=== PATIENT | female | born 1985 | race African-American/Black ===

== ENCOUNTER 2019-01-21 20:35 | Emergency (ER) | payer OTHER ==
[2019-01-21 20:46] VITALS: BP 149/117; PULSE 87; TEMP 98.4; BMI 46.5
--- NOTE | 2019-01-21 20:58 | PDOC ---
History of Present Illness - General Chief Complaint: Pain, Acute Stated Complaint: LEFT SIDE PAIN Time Seen by Provider: 01/21/19 20:58 History Source: Patient Exam Limitations: No Limitations - History of Present Illness Initial Comments: Pt is a 33 yo F, with PMH of myasthenia gravis, who is presenting with complaints of L-sided abdominal pain, L flank pain, and 1 episode of NBNB vomiting since this afternoon around 4 pm. Pt states the pain is intermittent, lasts for about 30 minutes and then slowly subsides on its own. There are no exacerbating nor alleviating factors. Pt took 500 mg PO tylenol at 5 pm with minimal relief. Pt was tolerating PO food and fluid intake without difficulty before the pain started. Pt is currently in [place] visiting on a vacation from [place]. Pt denies any fevers/chills, headache, vision changes, syncope, chest pain, palpitations, SOB, urinary symptoms, diarrhea/constipation, or leg swelling. Social: Pt denies any cigarette, alcohol, or drug use. Pt denies any recent travel or sick contacts. Surgical: , no other abdominal surgeries. Family: no relevant history. No FH of stones. 01/21/19 23:51 Past History - Travel Traveled outside of the country in the last 30 days: No Close contact w/someone who was outside of country & ill: No - Past Medical History Allergies/Adverse Reactions: Allergies Allergy/AdvReac Type Severity Reaction Status Date / Time No Known Allergies Allergy Verified 01/21/19 20:45 COPD: No - Suicide/Smoking/Psychosocial Hx Smoking History: Never smoked Review of Systems - Review of Systems Able to Perform ROS?: Yes Is the patient limited Yemeni proficient: No Constitutional: Yes: Weight Stable. No: Chills, Diaphoresis, Fever, Loss of Appetite, Malaise, Weakness HEENTM: No: Blurred Vision, Double Vision, Nose Pain, Nose Congestion, Throat Pain, Difficulty Swallowing Respiratory: No: Cough, Orthopnea, Shortness of Breath Cardiac (ROS): No: Chest Pain, Edema, Irregular Heart Rate, Lightheadedness, Palpitations, Syncope, Chest Tightness ABD/GI: Yes: Nausea, Vomiting, Abdominal cramping. No: Abdominal Distended, Abd. Pain w/ defecation, Blood Streaked Bowels, Constipated, Diarrhea, Poor Appetite, Poor Fluid Intake, Rectal Bleeding, Indigestion, Tarry Stools : Yes: Flank Pain. No: Burning, Dysuria, Discharge, Frequency, Hematuria, Incontinence, Pain, Urgency Musculoskeletal: No: Back Pain, Joint Pain, Muscle Pain, Muscle Weakness Integumentary: No: Rash Neurological: No: Headache, Numbness, Weakness, Unsteady Gait, Dizziness Psychiatric: No: Sleep Pattern Change, Change in Appetite Endocrine: No: Increased Urine, Change in Weight Hematologic/Lymphatic: No: Anemia, Blood Clots, Easy Bleeding, Easy Bruising All Other Systems: Reviewed and Negative *Physical Exam - Vital Signs Last Vital Signs Temp Pulse Resp BP Pulse Ox 98.4 F 87 20 149/117 H 100 01/21/19 20:45 01/21/19 20:45 01/21/19 20:45 01/21/19 20:45 01/21/19 20:45 - Physical Exam Comments: HTN 149/117, HR 87, pt afebrile. Pt appears uncomfortable, rolling on bed. Morbidly obese body habitus. Pt alert and oriented x3. 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 No midline spinal tenderness, step-offs, or crepitus. Head normocephalic, atraumatic. Eyes PERRLA, EOMI. Oropharynx without erythema or exudates, no LAD b/l. No nasal congestion, hearing intact. Clear heart sounds, S1/S2, no JVD, b/l pedal edema, or heart murmur. Clear lung sounds, no respiratory distress, wheezes, crackles, or accessory muscle use. No reproducible abdominal or CVA tenderness to palpation, no rebound, no guarding. Abdomen soft, protuberant, and with hyperactive bowel sounds. Skin without jaundice or rash. 01/21/19 23:34 ED Treatment Course - LABORATORY CBC & Chemistry Diagram: 01/21/19 21:27 01/21/19 21:17 Medical Decision Making - Medical Decision Making Pt was seen at bedside, also will be seen by attending Dr. Hollins. Pt presenting with complaints of L-sided abdominal pain, L flank pain, and 1 episode of NBNB vomiting since this afternoon around 4 pm. Pt states the pain is intermittent, lasts for about 30 minutes and then slowly subsides on its own. There are no exacerbating nor alleviating factors. Pt took 500 mg PO tylenol at 5 pm with minimal relief. Pt was tolerating PO food and fluid intake without difficulty before the pain started. Pt is currently in [place] visiting on a vacation from [place]. Pt denies any fevers/chills, headache, vision changes, syncope, chest pain, palpitations, SOB, urinary symptoms, diarrhea/constipation, or leg swelling. Considering nephrolithiasis vs diverticulitis/colitis vs UTI vs / ectopic vs ovarian cyst Ordered work-up including CBC, CMP, coags, serum test, . Provided 1 L IV NS, 4 mg IV zofran, 2 mg IV morphine, and 30 mg IV toradol for improvement of discomfort and nausea. Will continue to reassess pt and monitor for symptomatic improvement. 01/21/19 21:49 Pt continuing to have pain, providing 1 g IV ofirmev. Will obtain spiral CT scan to eval for stones. 01/21/19 22:19 CBC, CMP, and coags WNL Lactic 1.4 UA: trace ketones, 3+ blood, negative LE. Otherwise appears contaminated. Urine culture sent. Providing additional 2 mg IV morphine (4 mg total), and 0.4 mg tamsulosin. Called radiology to have CT scan sent again to imaging rehabilitation engineer, as it has not been sent nor read. 01/21/19 23:42 No nephrolithiasis, ureterolithiasis or obstructive uropathy. No bladder calculi. Unremarkable pancreas and gallbladder. Hepatomegaly. No bowel obstruction, colitis, free fluid or free air. Normal appendix. Diverticulosis colon without acute diverticulitis. Tiny umbilical hernia containing fat. 01/21/19 23:56 Pt being admitted to hospitalist team for intractable abdominal pain. Pt signed out to Dr. Hollins (night team). BP improved 123/90. 01/22/19 00:17 *DC/Admit/Observation/Transfer Diagnosis at time of Disposition: Intractable abdominal pain - Discharge Dispostion Condition at time of disposition: Stable Decision to Admit order: Yes - Referrals - Patient Instructions - Post Discharge Activity
[2019-01-21] MEDS ORDERED: morphine CARPU-JECT 4 MG/1 ML DISP.SYRIN IVPUSH ONE ×2 (21:18→23:23)
[2019-01-21] MEDS ORDERED: ONDANSETRON 4 MG/2 ML VIAL IVPUSH ONE (21:19)
[2019-01-21] MEDS ORDERED: ONDANSETRON 4 MG/2 ML VIAL ONE (21:21)
[2019-01-21] MEDS ORDERED: SODIUM CHLORIDE 1,000 ML IV STA (21:26)
[2019-01-21] MEDS ORDERED: KETOROLAC TROMETHAMINE 30 MG/1 ML VIAL IVPUSH ONE (21:30)
[2019-01-21 21:37] LABS: BASO % 0.7 % (0-2.0); EOS % 0.1 % (0-4.5); HEMATOCRIT 34.3 % (32.4-45.2); HEMOGLOBIN 11.2 GM/dL (10.7-15.3); LYMPH % 25.3 % (8-40); MCH 29.6 pg (25.7-33.7); MCHC 32.7 g/dl (32.0-36.0); MEAN CELL VOLUME 90.3 fl (80-96); MEAN PLT VOLUME 6.7 fl (7.5-11.1); MONO % 8.3 % (3.8-10.2); NEUT % 65.6 % (42.8-82.8); PLATELET COUNT 357 K/MM3 (134-434); RDW 14.7 % (11.6-15.6); WHITE BLOOD COUNT 6.8 K/mm3 (4.0-10.0)
[2019-01-21 21:41] LABS: URINE APPEARANCE CLOUDY; URINE BACTERIA 422.1 /hpf (NEGATIVE); URINE BILIRUBIN NEGATIVE (NEGATIVE); URINE CASTS 13 /lpf (0-8); URINE COLOR YELLOW; URINE GLUCOSE (UA) NEGATIVE (NEGATIVE); URINE KETONE TRACE (NEGATIVE); URINE LEUK ESTERASE NEGATIVE (NEGATIVE); URINE NITRITE NEGATIVE (NEGATIVE); URINE PROTEIN NEGATIVE (NEGATIVE); URINE RBC 2 /hpf (0-4); URINE UROBILINOGEN 0.2 mg/dL (0.2-1.0); URINE WBC 8 /hpf (0-5)
[2019-01-21] MEDS ORDERED: KETOROLAC TROMETHAMINE 30 MG/1 ML VIAL ONE (21:47)
[2019-01-21 22:09] LABS: INR 1.02 (0.83-1.09)
[2019-01-21 22:11] LABS: ALBUMIN 3.5 g/dl (3.4-5.0); ALK PHOS 66 U/L (45-117); ANION GAP 8 MMOL/L (8-16); BILIRUBIN,TOTAL 0.2 mg/dL (0.2-1); BLOOD UREA NITROGEN 5 mg/dL (7-18); CALCIUM 8.6 mg/dL (8.5-10.1); CHLORIDE 109 mmol/L (98-107); CO2 23 mmol/L (21-32); CREATININE 0.6 mg/dL (0.55-1.3); GLUCOSE,RANDOM 91 mg/dL (74-106); LIPASE 79 U/L (73-393); POTASSIUM 3.6 mmol/L (3.5-5.1); SGOT/AST 15 U/L (15-37); SGPT/ALT 15 U/L (13-61); SODIUM 140 mmol/L (136-145); TOT PROT 7.3 g/dl (6.4-8.2)
[2019-01-21] MEDS ORDERED: ACETAMINOPHEN 1000 MG/100 ML VIAL (NON FORMULARY) IVPB ONE (22:19)
[2019-01-21] MEDS ORDERED: TAMSULOSIN HCL 0.4 MG CAP PO ONE (22:24)
[2019-01-21] MEDS ORDERED: morphine SULFATE 4 MG/ML VIAL ONE (23:40)
[2019-01-21] MEDS ORDERED: TAMSULOSIN HCL 0.4 MG CAP ONE (23:40)
[2019-01-21] MEDS ORDERED: ACETAMINOPHEN INJECTION 100 ML IVPB ONE (23:41)
--- NOTE | 2019-01-22 00:05 | PDOC ---
Documentation entered by Falguni Hanson SCRIBE, acting as scribe for Lary Hollins MD. Lary Hollins MD: This documentation has been prepared by the Valentin qiu Daisy, SCRIBE, under my direction and personally reviewed by me in its entirety. I confirm that the documentation accurately reflects all work, treatment, procedures, and medical decision making performed by me. Attending Attestation - Resident Resident Name: Teresita Mclaughlin - ED Attending Attestation I have performed the following: I have examined & evaluated the patient, The case was reviewed & discussed with the resident, I agree w/resident's findings & plan - HPI HPI: 01/21/19 21:20 The patient is a 33 YOF with a PMH of myasthenia gravis who presents to the ER with left sided abdominal pain since 5PM today. Patient reports the abdominal pain began gradually, but has become more constant. She also endorses having 2 episodes of NB, NB vomit. She reports eating eggs this morning and snacking throughout the day. She reports having approximately 5 bowel movements per day, but had 2 BMs today, both of which were normal. Does admit to minimal straining today while having a bowel movement. Denies any heavy lifting. Denies any history of kidney stones. The patient denies chest pain, shortness of breath, headache and dizziness. Denies fever, chills, diarrhea or blood in the stool. Denies dysuria, frequency, urgency and hematuria. Allergies: NKA Past surgical history: Social history: No reported alcohol, drug or cigarette use. - Physicial Exam PE: 01/21/19 21:19 ADULT PHYSICAL EXAM Constitutional: Awake, alert, oriented. No acute distress. Head: Normocephalic. Atraumatic Eyes: PERRL. EOMI. Conjunctivae are not pale. ENT: Mucous membranes are moist and intact. Posterior pharynx without exudates or erythema. Uvula midline. Cardiovascular: Regular rate. Regular rhythm. S1, S2 regular. Distal pulses are 2+ and symmetric. Pulmonary/Chest: No evidence of respiratory distress. Clear to auscultation bilaterally No wheezing, rales or rhonchi. Abdominal: Soft and non-distended. (+) Minimal left sided tenderness. No rebound, guarding or rigidity. No organomegaly. No palpable masses. Good bowel sounds. Musculoskeletal: No edema. No cyanosis. No clubbing. Full range of motion in all extremities. Nocalf tenderness. Radial/pedal pulses are intact and 2+ bilaterally Skin: Skin is warm and dry. Neurological: Alert and oriented to person, place, and time. Cranial nerves II -XII are grossly intact. Psychiatric: Good eye contact. Normal interaction, affect and behavior. - Medical Decision Making 01/21/19 22:23 Pt has blood in her urine, but no nitrites and no leukocytes. She has left flank pain. SHe has normal chem and normal CBC. SHe is not and she will be sent for a CT scan to r/o kidney stones. 01/22/19 00:50 Pt wants to go home, but she still has intracrable pain. Pt wants to AMA.
--- NOTE | 2019-01-22 00:40 | HP ---
CHIEF COMPLAINT: PCP: HISTORY OF PRESENT ILLNESS: ER course was notable for: (1) (2) (3) Recent Travel: PAST MEDICAL HISTORY: PAST SURGICAL HISTORY: Social History: Smoking: Alcohol: Drugs: Family History: Allergies No Known Allergies Allergy (Verified 01/21/19 20:45) HOME MEDICATIONS: REVIEW OF SYSTEMS CONSTITUTIONAL: Absent: fever, chills, diaphoresis, generalized weakness, malaise, loss of appetite, weight change HEENT: Absent: rhinorrhea, nasal congestion, throat pain, throat swelling, difficulty swallowing, mouth swelling, ear pain, eye pain, visual changes CARDIOVASCULAR: Absent: chest pain, syncope, palpitations, irregular heart rate, lightheadedness , peripheral edema RESPIRATORY: Absent: cough, shortness of breath, dyspnea with exertion, orthopnea, wheezing, stridor, hemoptysis GASTROINTESTINAL: Absent: abdominal pain, abdominal distension, nausea, vomiting, diarrhea, constipation, melena, hematochezia GENITOURINARY: Absent: dysuria, frequency, urgency, hesitancy, hematuria, flank pain, genital pain MUSCULOSKELETAL: Absent: myalgia, arthralgia, joint swelling, back pain, neck pain SKIN: Absent: rash, itching, pallor HEMATOLOGIC/IMMUNOLOGIC: Absent: easy bleeding, easy bruising, lymphadenopathy, frequent infections ENDOCRINE: Absent: unexplained weight gain, unexplained weight loss, heat intolerance, cold intolerance NEUROLOGIC: Absent: headache, focal weakness or paresthesias, dizziness, unsteady gait, seizure, mental status changes, bladder or bowel incontinence PSYCHIATRIC: Absent: anxiety, depression, suicidal or homicidal ideation, hallucinations. PHYSICAL EXAMINATION Vital Signs - 24 hr 01/21/19 20:45 Temperature 98.4 F Pulse Rate 87 Respiratory 20 Rate Blood Pressure 149/117 H O2 Sat by Pulse 100 Oximetry (%) GENERAL: Awake, alert, and fully oriented, in no acute distress. HEAD: Normal with no signs of trauma. EYES: Pupils equal, round and reactive to light, extraocular movements intact, sclera anicteric, conjunctiva clear. No lid lag. EARS, NOSE, THROAT: Ears normal, nares patent, oropharynx clear without exudates. Moist mucous membranes. NECK: Normal range of motion, supple without lymphadenopathy, JVD, or masses. LUNGS: Breath sounds equal, clear to auscultation bilaterally. No wheezes, and no crackles. No accessory muscle use. HEART: Regular rate and rhythm, normal S1 and S2 without murmur, rub or gallop. ABDOMEN: Soft, nontender, not distended, normoactive bowel sounds, no guarding, no rebound, no masses. No hepatomegaly or splenomegaly. MUSCULOSKELETAL: Normal range of motion at all joints. No bony deformities or tenderness. No CVA tenderness. UPPER EXTREMITIES: 2+ pulses, warm, well-perfused. No cyanosis. No clubbing. No peripheral edema. LOWER EXTREMITIES: 2+ pulses, warm, well-perfused. No calf tenderness. No peripheral edema. NEUROLOGICAL: Cranial nerves II-XII intact. Normal speech. Normal gait. PSYCHIATRIC: Cooperative. Good eye contact. Appropriate mood and affect. SKIN: Warm, dry, normal turgor, no rashes or lesions noted, normal capillary refill. Laboratory Results - last 24 hr 01/21/19 01/21/19 01/21/19 21:17 21:24 21:27 WBC 6.8 RBC 3.80 Hgb 11.2 Hct 34.3 MCV 90.3 MCH 29.6 MCHC 32.7 RDW 14.7 Plt Count 357 MPV 6.7 L Absolute Neuts (auto) 4.5 Neutrophils % 65.6 Lymphocytes % 25.3 Monocytes % 8.3 Eosinophils % 0.1 Basophils % 0.7 Nucleated RBC % 0 PT with INR INR Sodium 140 Potassium 3.6 Chloride 109 H Carbon Dioxide 23 Anion Gap 8 BUN 5 L Creatinine 0.6 Creat Clearance w eGFR 116.60 Random Glucose 91 Lactic Acid Calcium 8.6 Total Bilirubin 0.2 AST 15 ALT 15 Alkaline Phosphatase 66 Total Protein 7.3 Albumin 3.5 Lipase 79 Serum , Qual Negative Urine Color Urine Appearance Urine pH Ur Specific [place] Urine Protein Urine Glucose (UA) Urine Ketones Urine Blood Urine Nitrite Urine Bilirubin Urine Urobilinogen Ur Leukocyte Esterase Urine WBC (Auto) Urine RBC (Auto) Urine Casts (Auto) U Epithel Cells (Auto) Urine Bacteria (Auto) 01/21/19 01/21/19 01/21/19 21:27 21:27 21:30 WBC RBC Hgb Hct MCV MCH MCHC RDW Plt Count MPV Absolute Neuts (auto) Neutrophils % Lymphocytes % Monocytes % Eosinophils % Basophils % Nucleated RBC % PT with INR 12.00 INR 1.02 Sodium Potassium Chloride Carbon Dioxide Anion Gap BUN Creatinine Creat Clearance w eGFR Random Glucose Lactic Acid 1.4 Calcium Total Bilirubin AST ALT Alkaline Phosphatase Total Protein Albumin Lipase Serum , Qual Urine Color Yellow Urine Appearance Cloudy Urine pH 5.0 Ur Specific [place] 1.031 Urine Protein Negative Urine Glucose (UA) Negative Urine Ketones Trace H Urine Blood 3+ H Urine Nitrite Negative Urine Bilirubin Negative Urine Urobilinogen 0.2 Ur Leukocyte Esterase Negative Urine WBC (Auto) 8 Urine RBC (Auto) 2 Urine Casts (Auto) 13 U Epithel Cells (Auto) 12.0 Urine Bacteria (Auto) 422.1 ASSESSMENT/PLAN:
--- NOTE | 2019-01-22 00:47 | PN ---
Teaching Attending Note Name of Resident: Black Rob Patient was to be admitted to medicine; Patient presents with intractable abdominal pain and eloped before we could finish our assessment. For Intractable abdominal pain Was planning on checking A1c, esr, crp, acute hepatitis panel, urine spot PBG, repeating UA as +blood with bacteria and negative LE/nitrite Should she return to the hosptial [facility] would be happy to admit her and monitor her on the hospitalist service.
[2019-01-22] MEDS ORDERED: KETOROLAC TROMETHAMINE 30 MG/1 ML VIAL IVPUSH ONE (00:52)
[2019-01-22] MEDS ORDERED: KETOROLAC TROMETHAMINE 30 MG/1 ML VIAL ONE (00:56)
== END 2019-01-22 01:05 | disposition left against medical advice (07) ==
LOC: JER 20:35
PROC: 3E0337Z Introduction of Electrolytic and Water Balance Substance into Peripheral Vein, Percutaneous Approach (ICD-10-PCS; principal; 2019-01-21)
PROC: 3E033NZ Introduction of Analgesics, Hypnotics, Sedatives into Peripheral Vein, Percutaneous Approach (ICD-10-PCS; 2019-01-21)
PROC: 3E033NZ Introduction of Analgesics, Hypnotics, Sedatives into Peripheral Vein, Percutaneous Approach (ICD-10-PCS; 2019-01-21)
PROC: 3E0333Z Introduction of Anti-inflammatory into Peripheral Vein, Percutaneous Approach (ICD-10-PCS; 2019-01-21)
PROC: 3E033GC Introduction of Other Therapeutic Substance into Peripheral Vein, Percutaneous Approach (ICD-10-PCS; 2019-01-21)
PROC: 3E033NZ Introduction of Analgesics, Hypnotics, Sedatives into Peripheral Vein, Percutaneous Approach (ICD-10-PCS; 2019-01-21)
DX: R10.9 Unspecified abdominal pain (principal)
CPT/HCPCS: 36415; 74176-TC; 80053; 81003; 83605; 83690; 84703; 85025; 85610; 87086; 96361; 96374; 96375; 96376; 99283-25; J0131; J7030